=== PATIENT | male | born 1970 | race Two or more races ===

== ENCOUNTER → 2019-05-30 | Outpatient (CLI) | payer BC, SELFPAY ==
--- NOTE | 2019-05-30 | IMM_PTH ---
PATIENT: MARICARMEN OTT LOC: [facility] U#:[id number] AGE/SX: 48/M ROOM: RE05/30/[address]: Dr. Arsh Cisse MD : 1970 BED: DIS: 05/30/2019 SPEC #: [id number] RECD: 06/03/19 16:20 STATUS: MONTEZ EVAN #: [id number] MADDIE: 05/30/19 00:[address]: Arsh Cisse DEPT: IMMUNOHISTOCHEMISTRY RECD BY: Luli Dejesus Tissues: Esophagus, NOS Procedures: P53 (initial) PHYSICIAN & INSTITUTION [place] [id number] SPECIMEN INFORMATION: Tissue Source: Esophageal biopsy Clinical Info: GERD, hiatal hernia Specimen Number: [id number] CPT code: 60492 METHODOLOGY: Deparaffinized sections of prefer/formalin-fixed tissue or PAP/DQ stained slides are incubated with monoclonal/polyclonal antibodies/oligonucleotide probes. Localization is made via biotin free immunoperoxidase method. Appropriate controls are performed and reacted as expected. Results on target cell population are indicated in the following table: RESULTS: ANTIBODY / CLONE RESULT P53 (DO-7) negative These tests were developed and their performance characteristics determined by [facility]. They may not have been cleared or approved by the [place]. Food and Drug Administration. The FDA has determined that such clearance or approval is not necessary. INTERPRETATION: Esophageal biopsy: No evidence of dysplasia. AM:johnna 06/04/19
--- NOTE | 2019-05-30 08:27 | EGD_PTH ---
PATIENT: MARICARMEN OTT LOC: [facility] U#:[id number] AGE/SX: 48/M ROOM: RE05/30/[address]: Dr. Arsh Cisse MD : 1970 BED: DIS: 05/30/2019 SPEC #: [id number] RECD: 05/30/19 15:27 STATUS: MONTEZ EVAN #: [id number] MADDIE: 05/30/19 08:[address]: Arsh Cisse DEPT: SURGICAL PATHOLOGY RECD BY: Karen Richter ENTERED: 06/02/19 14:45 SP TYPE: EGD BIOPSY OT DR: TRUDY Tissues: Esophageal mucous membrane Procedures: Special Stain Group II Surgery Specimen Level IV Alcian Blue/PAS (control) HEADER OPERATION: EGD with biopsies PRE-OP DIAGNOSIS: GERD, hiatal hernia TISSUE SUBMITTED: Esophageal biopsies, rule out Garland's/dysplasia MICROSCOPIC DIAGNOSIS Esophagus, biopsy: Gastroesophageal junctional mucosa with mild chronic inflammation. 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 No evidence of dysplasia. See comment. AM:johnna 06/03/19 COMMENT Alcian blue/PAS stain with matched control supports the above diagnosis. Immunohistochemistry ([id number]) supports the above diagnosis. MICROSCOPIC DESCRIPTION Slides are reviewed. GROSS DESCRIPTION Received in fixative is one container labeled with the patient's name and designated esophageal biopsy. The specimen consists of multiple irregular fragments of light scott soft tissue that in aggregate measure 1 x 0.5 x 0.1 cm. The specimen is totally submitted in one cassette. / SJ:johnna 06/02/19 TC:3 CPT: 04755, 73164
== END | disposition home or self-care (01) ==
LOC: LABSPEC 15:56
PROVIDERS: Referring Provider Internal Medicine Gastroenterology; Visit Provider Internal Medicine Gastroenterology
DX: K21.9 Gastro-esophageal reflux disease without esophagitis (principal); K44.9 Diaphragmatic hernia without obstruction or gangrene
CPT/HCPCS: 88305; 88313; 88342